=== PATIENT | male | born 1965 | race Caucasian/White ===

== ENCOUNTER 2022-07-08 15:21 | Emergency (ER) | payer OTHER ==
[~2022-07-08] VITALS: Ht 175.3 cm; Wt 79.4 kg
--- NOTE | 2022-07-08 16:26 | NUR ---
at bedside fof evalution
[2022-07-08] MEDS ORDERED: TDAP DIPH,PERTUSS,TET VAC/PF 0.5 ML DISP.SYRIN IM ONE ×2 (16:45→17:02)
[2022-07-08] MEDS ORDERED: LIDOCAINE HCL 1% 20 ML VIAL TP ONE (16:45)
[2022-07-08] MEDS ORDERED: LIDOCAINE HCL 1% 20 ML VIAL ONE (16:47)
[2022-07-08] MEDS ORDERED: DOXY100C5 PO (17:14)
[2022-07-08] MEDS ORDERED: DOXYCYCLINE HYCLATE 100 MG TABLET PO ONE (17:15)
[2022-07-08] MEDS ORDERED: DOXYCYCLINE HYCLATE 100 MG TABLET ONE (17:18)
[2022-07-08] MEDS ORDERED: NEOMY/BACITRA/POLYMYXIN B OINT UD PACKET TP ONE ×2 (17:21→17:30)
--- NOTE | 2022-07-08 17:25 | NUR ---
Wound care rendered.
--- NOTE | 2022-07-08 17:32 | NUR ---
Patient discharged to home in stable condition. Written and verbal after care instructions given. Patient verbalizes understanding of instructions. Stressed follow up or return to ER for worsening s/s.
[2022-07-08 19:07] VITALS: BP 132/75
== END 2022-07-08 17:32 | disposition home or self-care (01) ==
LOC: ER 15:24
DX: L03.115 Cellulitis of right lower limb (principal); L02.415 Cutaneous abscess of right lower limb; Z59.01 Sheltered homelessness; R60.0 Localized edema; Z91.041 Radiographic dye allergy status
CPT/HCPCS: 99284; 10060; 76882; J3490; 90715; A4663